=== PATIENT | female | born 1960 | race Caucasian/White ===

== ENCOUNTER → 2020-06-26 16:13 | Outpatient (CLI) | payer OTHER, SELFPAY ==
[2020-06-26] MEDS: COVID-19 VACC #1, MRNA(MOD) 100 MCG/0.5 ML VIAL IM (16:22)
== END ==
PROVIDERS: Visit Provider Internal Medicine
DX: Z23 Encounter for immunization (principal)
CPT/HCPCS: 0011A; 91301

== ENCOUNTER → 2020-07-24 15:23 | Outpatient (CLI) | payer OTHER, SELFPAY ==
[2020-07-24] MEDS: COVID-19 VACC #2, MRNA(MOD) 100 MCG/0.5 ML VIAL IM (15:42)
== END ==
PROVIDERS: Visit Provider Internal Medicine
DX: Z23 Encounter for immunization (principal)
CPT/HCPCS: 0012A; 91301

== ENCOUNTER 2024-06-08 11:27 | Emergency (ER) | payer MEDICARE, OTHER, SELFPAY ==
[2024-06-08 11:41] VITALS: BP 165/81; PULSE 63; RESP 20; TEMP 36.8; O2SAT 98; BMI 26.2
[2024-06-08 11:48] VITALS: PULSE 64
--- NOTE | 2024-06-08 12:03 | DI.US.S_ITS ---
PROCEDURE: US PERIPH VENOUS LOW EXTREM RT INDICATIONS: Right lower extremity pain clinical suspicion of deep vein thrombosis. TECHNIQUE: Real-time imaging, as well as color and pulse Doppler interrogation, were performed of the lower extremity deep veins from the inguinal ligament to the popliteal fossa, with documentation of the visualized calf veins. COMPARISON: None. FINDINGS: The common femoral, femoral, popliteal, and the visualized calf veins are normally compressible, and free of intraluminal thrombus. Color and pulse Doppler demonstrate normal phasic intraluminal flow. There is normal augmentation response to distal compression maneuver. IMPRESSION: No ultrasound evidence of deep vein thrombosis right lower extremity. Dictated by: Aramis Milton M.D. on 06/08/2024 at 12:55 Approved by: Aramis Milton M.D. on 06/08/2024 at 12:57
--- NOTE | 2024-06-08 12:25 | ED.EXTPRO ---
HPI - Extremity Problem <Alicia Santana PA-C - Last Filed: 06/08/24 15:57> General Chief complaint: Extremity Problem,Nontraumatic Stated complaint: Poss blood clot right lower leg Time Seen by Provider: 06/08/24 11:45 Source: patient and family Mode of arrival: Wheelchair History of Present Illness HPI Narrative: 64-year-old female here today with pain in her right lower extremity that started upon waking this morning. Pain is worse with ambulating and standing and is slightly relieved at rest. Denies any trauma or injury to the leg. She is an active person and walks 3-5 miles per day. States for the last 2 days she has been resting a lot more because of a back spasm in her mid back. Otherwise she has not been immobilized for any reason and denies any recent travel, surgeries, hospitalizations. She takes estradiol patch twice weekly for postmenopausal symptoms. She has been on this for about 1 year. She denies any history of blood clots or other bleeding/clotting disorders. Denies chest pain, SOB, hemoptysis. Patient has a history of plantar fasciitis in the right foot which has been acting up lately as well as her back spasms. She took a cooking class last night and was on her feet most of the evening but reports she was standing and walking stiffly due to her back spasm Related Data Home Medications Medication Instructions Recorded Confirmed clonazepam 0.5 mg tablet 0.5 mg PO DAILY 06/08/24 06/08/24 estradiol 0.025 mg/24 hr patch transdermal 06/08/24 06/08/24 semiweekly transdermal patch methocarbamol 500 mg tablet mg PO 06/08/24 06/08/24 metoprolol succinate 25 mg 25 mg PO DAILY 06/08/24 06/08/24 tablet,extended release 24 hr metronidazole 1 % topical gel topical DAILY 06/08/24 06/08/24 valacyclovir 500 mg tablet 500 mg PO BID 06/08/24 06/08/24 Allergies Allergy/AdvReac Type Severity Reaction Status Date / Time codeine Allergy Vomiting Verified 06/08/24 12:15 Review of Systems <Alicia Santana PA-C - Last Filed: 06/08/24 15:57> Review of Systems ROS Unobtainable: All systems reviewed & are unremarkable except as noted in HPI and below Patient History <Alicia Santana PA-C - Last Filed: 06/08/24 15:57> Social History Smoking Status: Never smoker Smoking Status: Never smoker Alcohol type: wine Exam <Alicia Santana PA-C - Last Filed: 06/08/24 15:57> Narrative Exam Narrative: GENERAL: [64] year old patient appears stated age. Well-developed patient, in no acute distress. HEAD: Atraumatic. Normocephalic. EYES: Pupils equal round and reactive. Extraocular motions intact. No scleral icterus. No injection or drainage. ENT: Nose without bleeding, purulent drainage. Throat without erythema, tonsillar hypertrophy or exudate. Airway patent. NECK: Trachea midline. Non tender CARDIOVASCULAR: Regular rate and rhythm without murmurs, gallops, or rubs. RESPIRATORY: Clear to auscultation. Breath sounds equal bilaterally. No wheezes, rales, or rhonchi. EXTREMITIES: Right lower extremity-no visible swelling, normal temperature and perfusion, normal distal pulses. Slight pain with deep palpation of the lateral aspect of the calf but otherwise nontender. No edema or joint tenderness. NEURO: AOx3. SKIN: No rash or erythema of visible areas Initial Vital Signs Initial Vital Signs: Vital Signs Temperature 98.2 F 06/08/24 11:41 Pulse Rate 63 06/08/24 11:41 Respiratory Rate 20 06/08/24 11:41 Blood Pressure 165/81 H 06/08/24 11:41 Pulse Oximetry 98 06/08/24 11:41 Oxygen Delivery Method Room Air 06/08/24 11:41 <Chelsey Ramirez MD - Last Filed: 06/09/24 08:07> Initial Vital Signs Initial Vital Signs: Vital Signs Temperature 98.2 F 06/08/24 11:41 Pulse Rate 63 06/08/24 11:41 Respiratory Rate 20 06/08/24 11:41 Blood Pressure 165/81 H 06/08/24 11:41 Pulse Oximetry 98 06/08/24 11:41 Oxygen Delivery Method Room Air 06/08/24 11:41 Course <Alicia Santana PA-C - Last Filed: 06/08/24 15:57> Orders Ordered: ED Orders 06/08/24 12:03 US periph venous low extrem rt Stat 06/08/24 13:16 CBC Auto Diff [Complete Blood Count AUTO DIFF] Stat CMP [Comprehensive Metabolic Panel] Stat D Dimer Stat Vital Signs Vital signs: Vital Signs - 8 hr 06/08/24 11:41 06/08/24 11:48 06/08/24 13:36 Temperature 98.2 F Pulse Rate 63 60 Pulse Rate [Right Dorsalis Pedis] 64 Respiratory Rate 20 16 Blood Pressure 165/81 H 150/80 H Pulse Oximetry 98 97 Oxygen Delivery Method Room Air Room Air <Chelsey Ramirez MD - Last Filed: 06/09/24 08:07> Orders Ordered: ED Orders 06/08/24 12:03 perip venous low extrem rt Stat 06/08/24 13:16 CBC Auto Diff [Complete Blood Count AUTO DIFF] Stat CMP [Comprehensive Metabolic Panel] Stat D Dimer Stat Vital Signs Vital signs: Vital Signs - 8 hr 06/08/24 11:41 06/08/24 11:48 06/08/24 13:36 Temperature 98.2 F Pulse Rate 63 60 Pulse Rate [Right Dorsalis Pedis] 64 Respiratory Rate 20 16 Blood Pressure 165/81 H 150/80 H Pulse Oximetry 98 97 Oxygen Delivery Method Room Air Room Air MDM - Extremity (Nontraumatic) <Alicia Santana PA-C - Last Filed: 06/08/24 15:57> Lab Data 06/08/24 13:16 06/08/24 13:16 Labs: Lab Results 06/08/24 Range/Units 13:16 WBC 5.5 (4.5-11.0) X10^3/uL RBC 4.11 (4.0-5.2) X10^6/uL Hgb 11.9 L (12.0-16.0) g/dL Hct 36.6 (36-46) % MCV 89.2 (80-100) fL MCH 29.1 (26-34) PG MCHC 32.6 (30-36) % RDW 13.7 (11.6-14.8) % Plt Count 289 (150-400) X10^3/uL Neut % (Auto) 56.5 (50-75) % Lymph % (Auto) 32.0 (25-40) % [place] % (Auto) 8.8 (3-14) % Eos % (Auto) 1.2 L (2-4) % Baso % (Auto) 1.5 (0-2) % Neut # (Auto) 3100 (0834-7786) /uL Lymph # (Auto) 1800 (7564-9828) /uL [place] # (Auto) 500 (0-900) /uL Eos # (Auto) 100 (0-450) /uL Baso # (Auto) 100 (0-100) /uL D-Dimer 1225 H (<500) ng/ml Sodium 139 (137-145) mmol/L Potassium 3.9 (3.4-5.1) mmol/L Chloride 105 (98-107) mmol/L Carbon Dioxide 27 (22-32) mmol/L BUN 21 H (7-17) mg/dL Creatinine 0.73 (0.52-1.04) mg/dL Estimated GFR > 60 (>60) mL/min BUN/Creatinine Ratio 28.8 H (6-22) Glucose 102 (80-110) mg/dL Calcium 9.2 (8.4-10.2) mg/dL Total Bilirubin 0.4 (0.2-1.3) mg/dL AST 25 (14-36) IU/L ALT 19 (<35) IU/L Alkaline Phosphatase 87 (38-126) U/L Total Protein 7.2 (6.3-8.2) g/dL Albumin 4.2 (3.5-5.0) g/dL Globulin 3.0 (1.7-4.1) g/dL Albumin/Globulin Ratio 1.4 (1.0-2.8) Imaging Data US - DVT: Radiologist's Impression: [address] [address] Ultrasound Report Signed Patient: Gabriela Portillo MR#: [id number] : 1960 Acct:[id number] Age/Sex: 64 / F Date of Service: 06/08/24 Loc: ED Accession Number: [id number] Procedure: US periph venous low extrem rt Ordering Provider: Alicia Santana PA-C PROCEDURE: US PERIPH VENOUS LOW EXTREM RT INDICATIONS: Right lower extremity pain clinical suspicion of deep vein thrombosis. TECHNIQUE: Real-time imaging, as well as color and pulse Doppler interrogation, were performed of the lower extremity deep veins from the inguinal ligament to the popliteal fossa, with documentation of the visualized calf veins. COMPARISON: None. FINDINGS: The common femoral, femoral, popliteal, and the visualized calf veins are normally compressible, and free of intraluminal thrombus. Color and pulse Doppler demonstrate normal phasic intraluminal flow. There is normal augmentation response to distal compression maneuver. IMPRESSION: No ultrasound evidence of deep vein thrombosis right lower extremity. Dictated by: Aramis Milton M.D. on 06/08/2024 at 12:55 Approved by: Aramis Milton M.D. on 06/08/2024 at 12:57 MDM Narrative Medical decision making narrative: Differential includes DVT, muscle strain, lumbar radiculopathy, sciatica Patient's risk factors for DVT include age and estradiol use, as well as recent immobility the last couple of days due to. her back pain. Otherwise she has no significant risk factors. Her examination is not very concerning for a DVT. She does not have any obvious swelling, redness, or significant tenderness in the calf or surrounding areas. Normal distal pulses temperature, signs of perfusion. However a DVT must be ruled out so a ultrasound was ordered which was negative. Patient likely having calf pain secondary to her back spasms and plantar fasciitis flaring up which has caused her to ambulate and stand differently than usual. Therefore I recommend she address the back and plantar fasciitis shoes as well as resting, stretching, and icing the sore calf area. Patient instructed to follow up with PCP if not improving. If she has any significant swelling, redness, or increased pain in the calf area she should return for re-evaluation. <Chelsey Ramirez MD - Last Filed: 06/09/24 08:07> Lab Data Labs: Lab Results 06/08/24 Range/Units 13:16 WBC 5.5 (4.5-11.0) X10^3/uL RBC 4.11 (4.0-5.2) X10^6/uL Hgb 11.9 L (12.0-16.0) g/dL Hct 36.6 (36-46) % MCV 89.2 (80-100) fL MCH 29.1 (26-34) PG MCHC 32.6 (30-36) % RDW 13.7 (11.6-14.8) % Plt Count 289 (150-400) X10^3/uL Neut % (Auto) 56.5 (50-75) % Lymph % (Auto) 32.0 (25-40) % [place] % (Auto) 8.8 (3-14) % Eos % (Auto) 1.2 L (2-4) % Baso % (Auto) 1.5 (0-2) % Neut # (Auto) 3100 (2199-7632) /uL Lymph # (Auto) 1800 (8522-7480) /uL [place] # (Auto) 500 (0-900) /uL Eos # (Auto) 100 (0-450) /uL Baso # (Auto) 100 (0-100) /uL D-Dimer 1225 H (<500) ng/ml Sodium 139 (137-145) mmol/L Potassium 3.9 (3.4-5.1) mmol/L Chloride 105 (98-107) mmol/L Carbon Dioxide 27 (22-32) mmol/L BUN 21 H (7-17) mg/dL Creatinine 0.73 (0.52-1.04) mg/dL Estimated GFR > 60 (>60) mL/min BUN/Creatinine Ratio 28.8 H (6-22) Glucose 102 (80-110) mg/dL Calcium 9.2 (8.4-10.2) mg/dL Total Bilirubin 0.4 (0.2-1.3) mg/dL AST 25 (14-36) IU/L ALT 19 (<35) IU/L Alkaline Phosphatase 87 (38-126) U/L Total Protein 7.2 (6.3-8.2) g/dL Albumin 4.2 (3.5-5.0) g/dL Globulin 3.0 (1.7-4.1) g/dL Albumin/Globulin Ratio 1.4 (1.0-2.8) Discharge Plan Departure Patient Disposition: Home Clinical Impression: Acute pain of right lower extremity Instructions: DI for Plantar Fasciitis, DI for Back Spasm Activity Restrictions/Additional Instructions: Thank you for choosing us to care for you today. You were seen for right lower leg pain and we have ruled out a blood clot with a normal ultrasound. Is likely that your right lower leg pain is a result of walking and moving around differently than usual due to your back spasms and your plantar fasciitis. We recommend addressing those 2 things and seeing if your lower leg pain resolves with time. You may proceed with physical therapy or health care law specialist if you wish. If at any point your lower leg becomes swollen, red, hot to the touch with increased pain please return to the emergency department for evaluation. Otherwise follow up as needed. Prescriptions: No Action clonazepam 0.5 mg tablet 0.5 mg PO DAILY valacyclovir 500 mg tablet 500 mg PO BID metoprolol succinate 25 mg tablet extended release 24 hr 25 mg PO DAILY estradiol 0.025 mg/24 hr patch semiweekly transdermal metronidazole 1 % gel topical DAILY methocarbamol 500 mg tablet PO Referrals: Miscellaneous,Doctor, [Primary Care Provider] - Stand Alone Forms: Patient Portal/API/Survey ED Sign-out <Chelsey Ramirez MD - Last Filed: 06/09/24 08:07> Cosign ED Attending Cosignature Attestation: I was immediately available in the department for consultation throughout this patient's visit. Chelsey Ramirez MD
[2024-06-08 13:27] LABS: Add Manual Diff / Slide Review NO; Basophils Absolute Auto 100 /uL (0-100); Basophils Percent Auto 1.5 % (0-2); Eosinophils Absolute Auto 100 /uL (0-450); Eosinophils Percent Auto 1.2 % (2-4); Hematocrit 36.6 % (36-46); Hemoglobin 11.9 g/dL (12.0-16.0); Lymphocytes Absolute Auto 1800 /uL (1100-4500); Mean Corpuscular HGB Conc 32.6 % (30-36); Mean Corpuscular Hemoglobin 29.1 PG (26-34); Mean Corpuscular Volume 89.2 fL (80-100); Monocytes Absolute Auto 500 /uL (0-900); Monocytes Percent Auto 8.8 % (3-14); Neutrophils Absolute Auto 3100 /uL (1500-7000); Neutrophils Percent Auto 56.5 % (50-75); Platelet Count 289 X10^3/uL (150-400); Red Blood Cell Count 4.11 X10^6/uL (4.0-5.2); Red Cell Distribution Width 13.7 % (11.6-14.8); White Blood Cell Count 5.5 X10^3/uL (4.5-11.0)
[2024-06-08 13:36] VITALS: BP 150/80; PULSE 60; RESP 16; O2SAT 97
--- NOTE | 2024-06-08 13:37 | PC.NURSE ---
Advised pt of US results reviewed with her some plantar fasciitis
[2024-06-08 13:40] LABS: Alanine Aminotransferase 19 IU/L (<35); Albumin 4.2 g/dL (3.5-5.0); Albumin Globulin Ratio 1.4 (1.0-2.8); Alkaline Phosphatase 87 U/L (38-126); Aspartate Aminotransferase 25 IU/L (14-36); BUN Creatinine Ratio 28.8 (6-22); Bilirubin Total 0.4 mg/dL (0.2-1.3); Blood Urea Nitrogen 21 mg/dL (7-17); Calcium 9.2 mg/dL (8.4-10.2); Carbon Dioxide 27 mmol/L (22-32); Chloride 105 mmol/L (98-107); Estimated Glomerular Filt Rate > 60 mL/min (>60); Glucose 102 mg/dL (80-110); HEMOLYSIS < 15 (0-50); Potassium 3.9 mmol/L (3.4-5.1); Sodium 139 mmol/L (137-145); Total Protein 7.2 g/dL (6.3-8.2)
[2024-06-08 13:44] LABS: D Dimer 1225 ng/ml (<500)
== END 2024-06-08 13:58 | disposition home or self-care (01) ==
PROVIDERS: Emergency Provider Physician Assistant
DX: M79.604 Pain in right leg (principal); M62.830 Muscle spasm of back
CPT/HCPCS: 80053; 85025; 85379; 93971; 99281; 99284

== ENCOUNTER → 2024-12-06 11:53 | Outpatient (CLI) | payer MEDICARE, OTHER, SELFPAY ==
--- NOTE | 2024-12-06 11:56 | DI.RAD.S_ITS ---
PROCEDURE: XR KNEE RT 3V INDICATIONS: Posterior Right knee pain, with flexion TECHNIQUE: 3 views of the knee were acquired. COMPARISON: None. FINDINGS: Bones: No fractures or dislocations. Moderate medial and mild to moderate lateral tibiofemoral and moderate to severe patellofemoral compartment narrowing with associated osteophytosis. No suspicious bony lesions. Soft tissues: No joint effusion. No suspicious soft tissue calcifications. IMPRESSION: KL grade 2 tricompartmental osteoarthritis without evidence of acute bony abnormality or significant effusion. Dictated by: Iggy Castillo M.D. on 12/09/2024 at 6:12 Approved by: Iggy Castillo M.D. on 12/09/2024 at 6:13
== END ==
LOC: RAD 11:56
PROVIDERS: PCP Family Medicine; Referring Provider Nurse Practitioner Family; Visit Provider Nurse Practitioner Family
DX: M17.11 Unilateral primary osteoarthritis, right knee (principal); M25.561 Pain in right knee
CPT/HCPCS: 73562